=== PATIENT | female | born 1960 | race Caucasian/White ===

== ENCOUNTER 2016-05-28 10:04 | Outpatient (CLI) | payer OTHER ==
--- NOTE | 2016-05-28 12:35 | DIAGNOSTIC IMAGING REPORT ---
PROCEDURE: XR CHEST 2 VIEW INDICATION: F/U COCCIDIOMYCOSIS TECHNIQUE: Two views. COMPARISON: 02/28/2015 FINDINGS: The cardiomediastinal contour and central vasculature are within normal limits. Horizontal linear density in the left mid lung, decreased in size compared to the prior study. The lungs are otherwise clear without focal consolidation, pleural effusion, or pneumothorax. The visualized osseous structures are intact. Small thoracic spine osteophytes. IMPRESSION: 1. Decreased prominence of left mid lung density with residual horizontal scarring. 2. Otherwise normal chest.
--- NOTE | 2016-05-28 12:48 | DIAGNOSTIC IMAGING REPORT ---
PROCEDURE: CT THORAX WITH CONTRAST INDICATION: LUNG MASS;COCCIDIOMYCOSIS TECHNIQUE: 100 ml of Isovue 300 was injected intravenously and axial images were obtained of the chest with coronal and sagittal reformations. COMPARISON: 07/17/2015 FINDINGS: The thyroid gland is normal. Thoracic aorta is normal caliber with atherosclerotic calcification. The great vessels demonstrates normal branching pattern. The central pulmonary arteries are normal caliber. Heart size is normal. No pericardial effusion. Numerous, but not pathologically enlarged pretracheal, prevascular, AP window and precarinal lymph nodes are stable. Ovoid, perihilar density measuring 3.2 x 1.6 centimeters in the left upper lobe with slight increase in central aeration/cavitation and mildly decreased wispy postobstructive parenchymal change distally. No significant change in size of the main nodule. The lungs are otherwise clear. The esophagus is normal in caliber without hiatal hernia. The airway is patent and branches normally. No pleural effusions or pneumothorax. Osseous structures are intact. The images obtained of the upper abdomen demonstrate mild hepatic enlargement and hypodensity consistent with hepatic steatosis, chronic. IMPRESSION: 1. No significant change in size of left upper lobe perihilar nodule, previously biopsied, demonstrating coccidiomycosis. 2. Mildly decreased amount of postobstructive pneumonitis. 3. Mediastinal lymph nodes stable in size and number. 4. Chronic hepatic steatosis.
== END 2016-05-28 23:00 ==
LOC: CT SRH 10:04
DX: R91.8 Other nonspecific abnormal finding of lung field (principal); B38.2 Pulmonary coccidioidomycosis, unspecified
CPT/HCPCS: 90074; 90100; 91096; 91504; 91643; 92720; 95059; 95150